=== PATIENT | male | born 1955 | race Caucasian/White ===

== ENCOUNTER 2019-02-05 14:09 | Emergency (ER) | payer MEDICAID ==
[~2019-02-05] VITALS: Ht 172.7 cm; Wt 90.0 kg
[~2019-02-05 14:09] MED LIST: OMEP40CA34 PO; SUCR1TAB30 PO
[2019-02-05] MEDS ORDERED: INSU100V3 SUBCUT (14:13)
[2019-02-05] MEDS ORDERED: MORPHINE SULFATE 4 MG/ML CPJ (NOT FOR IM USE) IV STA (14:51)
[2019-02-05] MEDS ORDERED: SODIUM CHLORIDE 0.9% 1,000 ML IV ONE ×3 (14:51→19:15)
[2019-02-05] MEDS ORDERED: ONDANSETRON HCL 4MG/2ML INJ IV STA (14:51)
[2019-02-05 16:00] LABS: CLARITY URINE CLEAR (CLEAR); COLOR URINE YELLOW (YELLOW); KETONES URINE NEGATIVE (NEGATIVE); LEUKOCYTE ESTERASE URINE NEGATIVE (NEGATIVE); NITRITE URINE NEGATIVE (NEGATIVE); OCCULT BLOOD URINE NEGATIVE (NEGATIVE); PROTEIN URINE NEGATIVE (NEGATIVE); SPECIFIC GRAVITY URINE 1.012 (1.005-1.030); UROBILINOGEN URINE 0.2 E.U./dL (0.2-1.0)
[2019-02-05 16:19] LABS: BASOPHILS % 0.4 % (0.0-2.0); EOSINOPHILS % 0.1 % (0.0-5.0); HEMATOCRIT. 32.7 % (42.0-52.0); LYMPHOCYTES % 8.4 % (20.0-50.0); MEAN CORPUSCULAR HEMOGLOBIN 26.7 pg (28.0-32.0); MEAN CORPUSCULAR VOLUME 79.4 fL (80.0-94.0); MEAN PLATELET VOLUME 8.7 fl (7.4-10.4); MONOCYTES % 9.2 % (2.0-8.0); NEUTROPHILS % 81.9 % (40.0-76.0); PLATELET 64 x1000/uL (130-400); RED BLOOD CELL COUNT 4.11 mill/uL (4.7-6.1); RED CELL DISTRIBUTION WIDTH 17.8 % (11.6-14.6)
[2019-02-05 16:25] LABS: CHLORIDE 101 mEq/L (98-107)
[2019-02-05] MEDS ORDERED: PIPERACILLIN/TAZOBACTAM 3.375GM/50ML PREMIX IV ONE (19:15)
[2019-02-05] MEDS ORDERED: PIPERACILLIN/TAZ 3.375G PREMIX 50 ML IV NR (19:25)
[2019-02-05 22:50] VITALS: BP 125/86
== END 2019-02-05 23:47 | disposition short-term general hospital (02) ==
LOC: ER 14:09 → EDBEDREQSVC 19:16 → EDBEDREQ 19:16 → ER 23:47 → CANBEDREQ 02-06 00:53
DX: R10.31 Right lower quadrant pain (principal); K40.90 Unilateral inguinal hernia, without obstruction or gangrene, not specified as recurrent; E11.9 Type 2 diabetes mellitus without complications; K74.60 Unspecified cirrhosis of liver; R76.11 Nonspecific reaction to tuberculin skin test without active tuberculosis; Z79.4 Long term (current) use of insulin; Z91.09 Other allergy status, other than to drugs and biological substances
CPT/HCPCS: 36415; 71045; 74176; 80053; 81003; 82962; 83605; 83690; 85025; 96361; 96365; 96375; 99285; J2270; J2405; J2543; J7030

== ENCOUNTER 2019-07-12 13:31 | Inpatient (IN) | payer MEDICARE, MEDICAID ==
[~2019-07-12] VITALS: Ht 167.6 cm; Wt 90.4 kg
[~2019-07-12 13:31] MED LIST changes: +INSU100V3 SUBCUT; +OMEP40CA12 PO; -OMEP40CA34 PO
[2019-07-12] MEDS ORDERED: SODIUM CHLORIDE 0.9% 1,000 ML IV ONE (14:37)
[2019-07-12] MEDS ORDERED: ONDANSETRON HCL 4MG/2ML INJ IV STA (14:37)
[2019-07-12 15:14] LABS: BASOPHILS % 0.1 % (0.0-2.0); EOSINOPHILS % 0.1 % (0.0-5.0); HEMATOCRIT. 34.9 % (42.0-52.0); HEMOGLOBIN. 11.9 g/dL (14.0-18.0); LYMPHOCYTES % 9.9 % (20.0-50.0); MEAN CORPUSCULAR HEMOGLOBIN 26.6 pg (28.0-32.0); MEAN CORPUSCULAR VOLUME 77.8 fL (80.0-94.0); MEAN PLATELET VOLUME 8.6 fl (7.4-10.4); MONOCYTES % 9.4 % (2.0-8.0); NEUTROPHILS % 80.5 % (40.0-76.0); PLATELET 67 x1000/uL (130-400); RED BLOOD CELL COUNT 4.49 mill/uL (4.7-6.1); RED CELL DISTRIBUTION WIDTH 21.1 % (11.6-14.6)
[2019-07-12 15:17] LABS: CHLORIDE 109 mEq/L (98-107)
[2019-07-12 15:19] LABS: INR 1.1; PARTIAL THROMBOPLASTIN TIME 26.8 sec (23.4-31.0); PROTHROMBIN TIME 12.1 sec (9.6-11.0)
[2019-07-12 15:24] LABS: ETHANOL BLOOD < 10 mg/dL
[2019-07-12 15:25] LABS: CREATINE KINASE 108 IU/L (39-308)
[2019-07-12 15:28] LABS: CREATINE KINASE MB FRACTION 2.1 ng/mL (0.5-3.6)
[2019-07-12 15:47] LABS: CLARITY URINE CLEAR (CLEAR); COLOR URINE DARK YELLOW (YELLOW); KETONES URINE NEGATIVE (NEGATIVE); LEUKOCYTE ESTERASE URINE NEGATIVE (NEGATIVE); NITRITE URINE NEGATIVE (NEGATIVE); OCCULT BLOOD URINE NEGATIVE (NEGATIVE); PH URINE 6.5 (4.5-8.0); PROTEIN URINE NEGATIVE (NEGATIVE); SPECIFIC GRAVITY URINE 1.018 (1.005-1.030); UROBILINOGEN URINE 0.2 E.U./dL (0.2-1.0)
[2019-07-12 16:06] LABS: *AMPHETAMINES SCREEN URINE NEGATIVE (NEGATIVE); *BARBITURATES SCREEN URINE NEGATIVE (NEGATIVE); *BENZODIAZEPINES SCREEN URINE NEGATIVE (NEGATIVE); *COCAINE SCREEN URINE NEGATIVE (NEGATIVE); METHADONE URINE SCREEN NEGATIVE (NEGATIVE)
[2019-07-12 16:07] LABS: CANNABINOID URINE SCREEN NEGATIVE (NEGATIVE); OPIATES URINE SCREEN NEGATIVE (NEGATIVE); PHENCYCLIDINE URINE SCREEN NEGATIVE (NEGATIVE)
[2019-07-12] MEDS ORDERED: NA PHOS,M-B/NA PHOS,DI-BA ENEMA 118ML PR PRN (18:15)
[2019-07-12] MEDS ORDERED: MAGNESIUM/ALUMINUM HYDROXIDE/SIMETHICONE 30ML UDC PO PRN (18:15)
[2019-07-12] MEDS ORDERED: PANTOPRAZOLE SODIUM 40 MG/VIAL IV ONE (18:15)
[2019-07-12] MEDS ORDERED: CLONIDINE 0.1MG TABLET PO PRN (18:15)
[2019-07-12] MEDS ORDERED: LORAZEPAM 0.5MG TABLET PO PRN (18:15)
[2019-07-12] MEDS ORDERED: DOCUSATE SODIUM 100MG CAPSULE PO PRN (18:15)
[2019-07-12] MEDS ORDERED: DEXTROSE 50% WATER 50ML SYRINGE IV PRN (18:15)
[2019-07-12] MEDS ORDERED: ACETAMINOPHEN 650MG/20.3ML UDC GT PRN (18:15)
[2019-07-12] MEDS ORDERED: ONDANSETRON HCL 4MG/2ML INJ IV PRN (18:15)
[2019-07-12] MEDS ORDERED: IPRATROPIUM/ALBUTEROL 0.5-3(2.5)MG/3ML NEB NEB PRN (18:15)
[2019-07-12] MEDS ORDERED: GUAIFENESIN 200MG/10ML SUGAR FREE UDC PO PRN (18:15)
[2019-07-12] MEDS ORDERED: ACETAMINOPHEN 650MG SUPP PR PRN (18:15)
[2019-07-12] MEDS ORDERED: ACETAMINOPHEN 325MG TABLET PO PRN (18:15)
[2019-07-12] MEDS ORDERED: DIPHENHYDRAMINE 50MG/ML VIAL IV PRN (18:15)
[2019-07-12] MEDS ORDERED: HYDROCODONE/ACETAMINOPHEN 5/325MG TABLET PO PRN (18:15)
[2019-07-12] MEDS ORDERED: INSULIN LISPRO 100 UNITS/ML SUBCUT SCH (18:20)
[2019-07-12 18:49] LABS: BG BASE EXCESS -0.6 mmol/L (-2.0-2.0); BG CARBOXYHEMOGLOBIN 0.1 % (0.5-1.5); BG DEOXYHEMOGLOBIN 3.5 % (0.0-5.0); BG FRACTION INSPIRED OXYGEN 21; BG HCO3 ACT 22.5 mmol/L (22.0-26.0); BG METHEMOGLOBIN 0.2 % (0.0-1.5); BG OXYGEN SATURATION 96.5 % (92.0-98.5); BG OXYHEMOGLOBIN 96.2 % (94.0-97.0); BG PCO2 31.9 mmHg (35.0-45.0); BG PH 7.466 (7.350-7.450); BG PO2 95.1 mmHg (75.0-100.0); BG SAMPLE SITE RIGHT RADIAL; BG TOTAL HEMOGLOBIN 11.6 g/dL (12.0-18.0); BG VENT MODE ROOM AIR
[2019-07-12] MEDS: SODIUM CHLORIDE 0.45% 1,000 ML IV SCH (19:02)
[2019-07-12] MEDS ORDERED: LACTULOSE 20G/30ML UDC PO SCH (22:00)
[2019-07-12 23:05] VITALS: BP 125/76
[2019-07-12] MEDS ORDERED: PANTOPRAZOLE SODIUM 40 MG/VIAL IV NR (23:20)
[2019-07-12 23:52] LABS: CREATINE KINASE 345 IU/L (39-308)
[2019-07-12 23:53] LABS: CREATINE KINASE MB FRACTION 7.8 ng/mL (0.5-3.6)
[2019-07-13] VITALS: BP 147/75
[2019-07-13] MEDS ORDERED: RIFA550T PO (03:33)
[2019-07-13] MEDS ORDERED: FOLI-43 PO (03:33)
[2019-07-13] MEDS ORDERED: SPIR50TA5 PO (03:33)
[2019-07-13] MEDS ORDERED: DIPH25TA23 PO (03:33)
[2019-07-13] MEDS ORDERED: FURO40TA5 PO (03:33)
[2019-07-13] MEDS ORDERED: VIT1TABL77 PO (03:33)
[2019-07-13] MEDS ORDERED: OMEP40CA12 PO (03:33)
[2019-07-13] MEDS ORDERED: HYDR-4001 PO (03:39)
[2019-07-13] MEDS ORDERED: INSU100I24 SQ (03:39)
[2019-07-13] MEDS ORDERED: LACT10SO30 PO (03:39)
[2019-07-13] MEDS ORDERED: VIT D PO (03:51)
[2019-07-13] MEDS ORDERED: VIT D2 PO (03:57)
[2019-07-13 04:00] VITALS: BP 144/76
[2019-07-13] MEDS: LACTULOSE 20G/30ML UDC PO SCH ×3 (06:19→20:32)
[2019-07-13] MEDS: BLOOD SUGAR DIAGNOSTIC STRIP TEST SCH ×4 (06:25→21:00)
[2019-07-13] MEDS: INSULIN LISPRO 100 UNITS/ML SUBCUT SCH ×4 (06:25→21:30)
[2019-07-13 07:56] LABS: BASOPHILS % 0.3 % (0.0-2.0); HEMATOCRIT. 29.4 % (42.0-52.0); HEMOGLOBIN. 10.1 g/dL (14.0-18.0); LYMPHOCYTES % 26.2 % (20.0-50.0); MEAN CORPUSCULAR HEMOGLOBIN 26.5 pg (28.0-32.0); MEAN CORPUSCULAR VOLUME 77.3 fL (80.0-94.0); MEAN PLATELET VOLUME 8.7 fl (7.4-10.4); MONOCYTES % 14.2 % (2.0-8.0); NEUTROPHILS % 57.3 % (40.0-76.0); PLATELET 55 x1000/uL (130-400); RED BLOOD CELL COUNT 3.81 mill/uL (4.7-6.1); RED CELL DISTRIBUTION WIDTH 20.9 % (11.6-14.6)
[2019-07-13 08:00] VITALS: BP 133/85
[2019-07-13 08:05] LABS: CHLORIDE 108 mEq/L (98-107)
[2019-07-13 08:31] LABS: LDL CHOLESTEROL 46 mg/dL (5-100)
[2019-07-13 08:32] LABS: CREATINE KINASE 455 IU/L (39-308); CREATINE KINASE MB FRACTION 9.5 ng/mL (0.5-3.6); HDL CHOLESTEROL 50 mg/dL (40-59); T4 FREE 0.88 ng/dL (0.76-1.46)
[2019-07-13 12:00] VITALS: BP 145/80
[2019-07-13] MEDS ORDERED: POTASSIUM CHLORIDE INJ 40 MEQ in DEXT 5% WATER 250 ML IV SCH (12:00)
[2019-07-13] MEDS ORDERED: PNEUMOCOCCAL 23-VAL P-SAC VAC 0.5 ML IM ONE (12:00)
[2019-07-13] MEDS ORDERED: INFLUENZA VIRUS VACCINE(AFLURIA) 0.5ML SYR IM ONE (12:00)
[2019-07-13] MEDS: SODIUM CHLORIDE 0.45% 1,000 ML IV SCH (14:36)
[2019-07-13 15:26] LABS: HEPATITIS B SURFACE ANTIGEN NEGATIVE
[2019-07-13 15:55] LABS: HEPATITIS A AB IGM NEGATIVE (NEGATIVE)
[2019-07-13 16:00] VITALS: BP 112/67
[2019-07-13] MEDS: SUCRALFATE 1G TABLET PO SCH (18:23)
[2019-07-13] MEDS: SPIRONOLACTONE 50MG TABLET PO SCH (18:23)
[2019-07-13] MEDS: RIFAXIMIN 550 MG TABLET PO SCH (18:23)
[2019-07-13 20:00] VITALS: BP 139/77
[2019-07-13] MEDS: PROPRANOLOL HCL 10MG TABLET PO SCH (20:31)
[2019-07-14] VITALS (13 sets, daily range): BP systolic 88–120; BP diastolic 47–80
[2019-07-14] MEDS: LACTULOSE 20G/30ML UDC PO SCH ×4 (02:11→21:11)
[2019-07-14 06:16] LABS: HEMATOCRIT 29.7 % (42.0-52.0); HEMOGLOBIN 10.3 g/dL (14.0-18.0); MEAN CORPUSCULAR VOLUME 77.7 fL (80.0-94.0); PLATELET 58 x1000/uL (130-400); RED BLOOD CELL COUNT 3.82 mill/uL (4.7-6.1); RED CELL DISTRIBUTION WIDTH 21.1 % (11.6-14.6)
[2019-07-14] MEDS: BLOOD SUGAR DIAGNOSTIC STRIP TEST SCH ×4 (06:21→21:09)
[2019-07-14] MEDS: PANTOPRAZOLE 40MG DR TABLET PO SCH (06:21)
[2019-07-14] MEDS: RIFAXIMIN 550 MG TABLET PO SCH ×2 (06:21→17:49)
[2019-07-14] MEDS: INSULIN LISPRO 100 UNITS/ML SUBCUT SCH ×4 (06:22→21:00)
[2019-07-14 06:48] LABS: CHLORIDE 107 mEq/L (98-107)
[2019-07-14] MEDS: FUROSEMIDE 40MG TABLET PO SCH (09:00)
[2019-07-14] MEDS: SPIRONOLACTONE 50MG TABLET PO SCH (09:00)
[2019-07-14] MEDS: PROPRANOLOL HCL 10MG TABLET PO SCH ×2 (09:00→21:00)
[2019-07-14] MEDS: SUCRALFATE 1G TABLET PO SCH (09:05)
[2019-07-14] MEDS: FOLIC ACID 1MG TABLET PO SCH (09:06)
[2019-07-15 00:24] VITALS: BP 110/61
[2019-07-15] MEDS: LACTULOSE 20G/30ML UDC PO SCH ×2 (03:00→08:37)
[2019-07-15 04:00] VITALS: BP 103/60
[2019-07-15 06:00] LABS: BASOPHILS % 0.2 % (0.0-2.0); EOSINOPHILS % 3.8 % (0.0-5.0); HEMATOCRIT. 30.7 % (42.0-52.0); HEMOGLOBIN. 10.6 g/dL (14.0-18.0); LYMPHOCYTES % 32.6 % (20.0-50.0); MEAN CORPUSCULAR HEMOGLOBIN 26.9 pg (28.0-32.0); MEAN CORPUSCULAR VOLUME 77.5 fL (80.0-94.0); MEAN PLATELET VOLUME 8.8 fl (7.4-10.4); MONOCYTES % 14.3 % (2.0-8.0); NEUTROPHILS % 49.1 % (40.0-76.0); PLATELET 69 x1000/uL (130-400); RED BLOOD CELL COUNT 3.96 mill/uL (4.7-6.1); RED CELL DISTRIBUTION WIDTH 20.5 % (11.6-14.6)
[2019-07-15] MEDS: PANTOPRAZOLE 40MG DR TABLET PO SCH (06:21)
[2019-07-15] MEDS: BLOOD SUGAR DIAGNOSTIC STRIP TEST SCH (06:21)
[2019-07-15] MEDS: RIFAXIMIN 550 MG TABLET PO SCH (06:21)
[2019-07-15 06:57] LABS: CHLORIDE 106 mEq/L (98-107)
[2019-07-15] MEDS: INSULIN LISPRO 100 UNITS/ML SUBCUT SCH (07:44)
[2019-07-15 08:02] VITALS: BP_SYST 87; BP_SYST 95; BP_DIAS 47; BP_DIAS 49
[2019-07-15] MEDS: FOLIC ACID 1MG TABLET PO SCH (08:32)
[2019-07-15] MEDS: SUCRALFATE 1G TABLET PO SCH (08:33)
[2019-07-15] MEDS: FUROSEMIDE 40MG TABLET PO SCH (08:33)
[2019-07-15] MEDS: PROPRANOLOL HCL 10MG TABLET PO SCH (08:34)
[2019-07-15] MEDS: SPIRONOLACTONE 50MG TABLET PO SCH (08:36)
== END 2019-07-15 10:00 | disposition home or self-care (01) | DRG 441 ==
LOC: ER 13:31 → 6WST 17:47 → EDBEDREQ 17:51 → ENRESERV 20:53
PROVIDERS: ADMIT Internal Medicine; ATTEND Internal Medicine
DX: K72.00 Acute and subacute hepatic failure without coma (principal); G93.41 Metabolic encephalopathy; D61.818 Other pancytopenia; E87.2 Acidosis; K76.6 Portal hypertension; M62.82 Rhabdomyolysis; E80.6 Other disorders of bilirubin metabolism; E11.65 Type 2 diabetes mellitus with hyperglycemia; E86.0 Dehydration; E87.6 Hypokalemia; K74.60 Unspecified cirrhosis of liver; K80.20 Calculus of gallbladder without cholecystitis without obstruction; Z79.4 Long term (current) use of insulin; Z79.899 Other long term (current) drug therapy
CPT/HCPCS: 36415; 36600; 71045; 76700; 80053; 80061; 80076; 80305; 80320; 81003; 82140; 82248; 82375; 82550; 82553; 82805; 82962; 83036; 83605; 83880; 84439; 84443; 84484; 85025; 85027; 86705; 86709; 86803; 87340; 90686; 90732; 93005; 93306; 93970; 96374; 97162; 99285; C9113; J1815; J3480; J7030; J7060; G0480

== ENCOUNTER 2019-07-20 19:37 | Inpatient (IN) | payer MEDICARE, MEDICAID ==
[~2019-07-20] VITALS: Ht 170.2 cm; Wt 89.4 kg
[~2019-07-20 19:37] MED LIST changes: +DIPH25TA23 PO; +FOLI-43 PO; +FURO40TA5 PO; +INSU100I24 SQ; +LACT10SO30 PO; +RIFA550T PO; +SPIR50TA5 PO; +VIT D2 PO; +VIT1TABL77 PO
[2019-07-20] MEDS ORDERED: SODIUM CHLORIDE 0.9% 1,000 ML IV ONE (20:27)
[2019-07-20 21:00] LABS: BG BASE EXCESS -2.9 mmol/L (-2.0-2.0); BG CARBOXYHEMOGLOBIN 0.1 % (0.5-1.5); BG DEOXYHEMOGLOBIN 3.3 % (0.0-5.0); BG FRACTION INSPIRED OXYGEN 21; BG HCO3 ACT 20.2 mmol/L (22.0-26.0); BG METHEMOGLOBIN 0.2 % (0.0-1.5); BG OXYGEN SATURATION 96.7 % (92.0-98.5); BG OXYHEMOGLOBIN 96.4 % (94.0-97.0); BG PCO2 29.9 mmHg (35.0-45.0); BG PH 7.448 (7.350-7.450); BG PO2 93.6 mmHg (75.0-100.0); BG SAMPLE SITE RIGHT BRACHIAL; BG TOTAL HEMOGLOBIN 11.6 g/dL (12.0-18.0); BG VENT MODE ROOM AIR
[2019-07-20 21:02] LABS: BASOPHILS % 0.3 % (0.0-2.0); EOSINOPHILS % 1.4 % (0.0-5.0); HEMATOCRIT. 33.7 % (42.0-52.0); HEMOGLOBIN. 11.6 g/dL (14.0-18.0); LYMPHOCYTES % 18.5 % (20.0-50.0); MEAN CORPUSCULAR HEMOGLOBIN 27.1 pg (28.0-32.0); MEAN CORPUSCULAR VOLUME 78.6 fL (80.0-94.0); MEAN PLATELET VOLUME 9.3 fl (7.4-10.4); MONOCYTES % 13.9 % (2.0-8.0); NEUTROPHILS % 65.9 % (40.0-76.0); PLATELET 63 x1000/uL (130-400); RED BLOOD CELL COUNT 4.28 mill/uL (4.7-6.1); RED CELL DISTRIBUTION WIDTH 21.6 % (11.6-14.6)
[2019-07-20 21:04] LABS: CHLORIDE 109 mEq/L (98-107)
[2019-07-20 21:08] LABS: ETHANOL BLOOD < 10 mg/dL
[2019-07-20] MEDS ORDERED: LACTULOSE 20G/30ML UDC PO ONE (21:15)
[2019-07-20] MEDS ORDERED: LORAZEPAM 2MG/ML CPJ IV PRN (22:15)
[2019-07-20] MEDS ORDERED: HYDRALAZINE 20MG/ML VIAL IV PRN (22:15)
[2019-07-20] MEDS ORDERED: ONDANSETRON HCL 4MG/2ML INJ IV PRN (22:15)
[2019-07-21 03:28] VITALS: BP 149/83
[2019-07-21] MEDS ORDERED: DEXTROSE 50% WATER 50ML SYRINGE IV PRN (04:00)
[2019-07-21] MEDS: LACTULOSE 20G/30ML UDC PO SCH ×3 (05:47→21:51)
[2019-07-21] MEDS: INSULIN LISPRO 100 UNITS/ML SUBCUT SCH ×4 (06:37→21:50)
[2019-07-21] MEDS: BLOOD SUGAR DIAGNOSTIC STRIP TEST SCH ×4 (06:37→21:00)
[2019-07-21] MEDS ORDERED: BLOOD SUGAR DIAGNOSTIC STRIP TEST SCH ×4 (07:00→22:00)
[2019-07-21 08:00] VITALS: BP 160/94
[2019-07-21 09:16] LABS: BASOPHILS % 0.2 % (0.0-2.0); EOSINOPHILS % 1.2 % (0.0-5.0); HEMATOCRIT. 33.3 % (42.0-52.0); HEMOGLOBIN. 11.5 g/dL (14.0-18.0); LYMPHOCYTES % 18.6 % (20.0-50.0); MEAN CORPUSCULAR VOLUME 78.5 fL (80.0-94.0); MEAN PLATELET VOLUME 8.5 fl (7.4-10.4); MONOCYTES % 11.5 % (2.0-8.0); NEUTROPHILS % 68.5 % (40.0-76.0); PLATELET 63 x1000/uL (130-400); RED BLOOD CELL COUNT 4.24 mill/uL (4.7-6.1); RED CELL DISTRIBUTION WIDTH 21.8 % (11.6-14.6)
[2019-07-21 09:22] LABS: CHLORIDE 112 mEq/L (98-107)
[2019-07-21] MEDS: RIFAXIMIN 550 MG TABLET PO SCH ×2 (09:32→21:50)
[2019-07-21] MEDS: PANTOPRAZOLE SODIUM 40 MG/VIAL IV SCH (09:32)
[2019-07-21 12:00] VITALS: BP 145/79
[2019-07-21 16:00] VITALS: BP 155/89
[2019-07-21 20:00] VITALS: BP 146/82
[2019-07-21] MEDS: PROPRANOLOL HCL 10MG TABLET PO SCH (21:50)
[2019-07-22] VITALS: BP 135/80
[2019-07-22 04:00] VITALS: BP 130/72
[2019-07-22] MEDS: LACTULOSE 20G/30ML UDC PO SCH ×3 (06:00→21:19)
[2019-07-22 06:40] LABS: CHLORIDE 111 mEq/L (98-107)
[2019-07-22 06:55] LABS: BASOPHILS % 0.2 % (0.0-2.0); EOSINOPHILS % 3.1 % (0.0-5.0); HEMATOCRIT. 28.9 % (42.0-52.0); HEMOGLOBIN. 10.1 g/dL (14.0-18.0); MEAN CORPUSCULAR HEMOGLOBIN 27.5 pg (28.0-32.0); MEAN CORPUSCULAR VOLUME 78.3 fL (80.0-94.0); MEAN PLATELET VOLUME 8.8 fl (7.4-10.4); MONOCYTES % 12.3 % (2.0-8.0); NEUTROPHILS % 57.4 % (40.0-76.0); PLATELET 60 x1000/uL (130-400); RED CELL DISTRIBUTION WIDTH 21.4 % (11.6-14.6)
[2019-07-22] MEDS: BLOOD SUGAR DIAGNOSTIC STRIP TEST SCH ×4 (07:41→21:00)
[2019-07-22] MEDS: INSULIN LISPRO 100 UNITS/ML SUBCUT SCH ×4 (07:42→21:00)
[2019-07-22 08:00] VITALS: BP 125/63
[2019-07-22] MEDS: RIFAXIMIN 550 MG TABLET PO SCH ×2 (09:14→21:19)
[2019-07-22] MEDS: PROPRANOLOL HCL 10MG TABLET PO SCH ×2 (09:16→21:19)
[2019-07-22] MEDS: PANTOPRAZOLE SODIUM 40 MG/VIAL IV SCH (09:16)
[2019-07-22 12:00] VITALS: BP 133/69
[2019-07-22 16:00] VITALS: BP 130/55
[2019-07-22] MEDS ORDERED: POTASSIUM CHLORIDE 20MEQ TABLET SR PO NR (17:00)
[2019-07-22] MEDS: LACTULOSE 300 ML in WATER FOR IRRIGATION,STERILE 700 ML IR SCH ×2 (17:00→17:44)
[2019-07-22 19:54] VITALS: BP 121/62
[2019-07-23] VITALS: BP 103/56
[2019-07-23 03:41] VITALS: BP 107/57
[2019-07-23] MEDS: LACTULOSE 20G/30ML UDC PO SCH ×3 (05:10→22:00)
[2019-07-23] MEDS: INSULIN LISPRO 100 UNITS/ML SUBCUT SCH ×4 (06:24→21:59)
[2019-07-23] MEDS: BLOOD SUGAR DIAGNOSTIC STRIP TEST SCH ×4 (06:24→21:00)
[2019-07-23 07:39] LABS: BASOPHILS % 0.5 % (0.0-2.0); HEMATOCRIT. 34.1 % (42.0-52.0); HEMOGLOBIN. 11.6 g/dL (14.0-18.0); LYMPHOCYTES % 26.7 % (20.0-50.0); MEAN CORPUSCULAR HEMOGLOBIN 27.2 pg (28.0-32.0); MEAN CORPUSCULAR VOLUME 80.3 fL (80.0-94.0); MEAN PLATELET VOLUME 8.8 fl (7.4-10.4); NEUTROPHILS % 57.8 % (40.0-76.0); PLATELET 80 x1000/uL (130-400); RED BLOOD CELL COUNT 4.25 mill/uL (4.7-6.1); RED CELL DISTRIBUTION WIDTH 21.7 % (11.6-14.6)
[2019-07-23 07:55] LABS: CHLORIDE 111 mEq/L (98-107)
[2019-07-23 08:00] VITALS: BP 112/58
[2019-07-23] MEDS: RIFAXIMIN 550 MG TABLET PO SCH ×2 (09:16→21:44)
[2019-07-23] MEDS: PROPRANOLOL HCL 10MG TABLET PO SCH ×2 (09:16→21:00)
[2019-07-23] MEDS: PANTOPRAZOLE SODIUM 40 MG/VIAL IV SCH (09:16)
[2019-07-23 12:00] VITALS: BP 113/58
[2019-07-23 16:00] VITALS: BP 117/73
[2019-07-23 20:00] VITALS: BP 104/51
[2019-07-24] VITALS: BP 96/49
[2019-07-24 04:00] VITALS: BP 104/51
[2019-07-24] MEDS: LACTULOSE 20G/30ML UDC PO SCH ×3 (06:50→21:20)
[2019-07-24] MEDS: BLOOD SUGAR DIAGNOSTIC STRIP TEST SCH ×4 (06:50→21:20)
[2019-07-24 08:00] VITALS: BP 127/79
[2019-07-24] MEDS: INSULIN LISPRO 100 UNITS/ML SUBCUT SCH ×4 (08:10→21:00)
[2019-07-24] MEDS: PROPRANOLOL HCL 10MG TABLET PO SCH ×2 (09:14→21:21)
[2019-07-24] MEDS: RIFAXIMIN 550 MG TABLET PO SCH ×2 (09:14→21:21)
[2019-07-24] MEDS: PANTOPRAZOLE SODIUM 40 MG/VIAL IV SCH (09:39)
[2019-07-24 12:00] VITALS: BP 116/63
[2019-07-24 13:53] LABS: BASOPHILS % 0.3 % (0.0-2.0); CHLORIDE 110 mEq/L (98-107); EOSINOPHILS % 3.4 % (0.0-5.0); HEMATOCRIT. 30.4 % (42.0-52.0); HEMOGLOBIN. 10.6 g/dL (14.0-18.0); LYMPHOCYTES % 29.1 % (20.0-50.0); MEAN CORPUSCULAR HEMOGLOBIN 27.3 pg (28.0-32.0); MEAN CORPUSCULAR VOLUME 78.3 fL (80.0-94.0); MEAN PLATELET VOLUME 8.7 fl (7.4-10.4); NEUTROPHILS % 53.2 % (40.0-76.0); PLATELET 66 x1000/uL (130-400); RED BLOOD CELL COUNT 3.88 mill/uL (4.7-6.1); RED CELL DISTRIBUTION WIDTH 20.7 % (11.6-14.6)
[2019-07-24 16:00] VITALS: BP 116/65
[2019-07-24] MEDS ORDERED: HYDROCODONE/ACETAMINOPHEN 5/325MG TABLET PO PRN (17:15)
[2019-07-24 20:00] VITALS: BP_SYST 117; BP_SYST 133; BP_DIAS 64; BP_DIAS 66
[2019-07-24] MEDS ORDERED: LACTULOSE 300 ML in WATER FOR IRRIGATION,STERILE 700 ML IR SCH (20:00)
[2019-07-25] VITALS: BP 115/64
[2019-07-25 04:00] VITALS: BP 101/54
[2019-07-25 05:10] LABS: BASOPHILS % 0.3 % (0.0-2.0); EOSINOPHILS % 3.4 % (0.0-5.0); HEMOGLOBIN. 10.3 g/dL (14.0-18.0); LYMPHOCYTES % 31.3 % (20.0-50.0); MEAN CORPUSCULAR HEMOGLOBIN 27.1 pg (28.0-32.0); MEAN CORPUSCULAR VOLUME 78.5 fL (80.0-94.0); MEAN PLATELET VOLUME 8.5 fl (7.4-10.4); MONOCYTES % 12.9 % (2.0-8.0); NEUTROPHILS % 52.1 % (40.0-76.0); PLATELET 59 x1000/uL (130-400); RED BLOOD CELL COUNT 3.82 mill/uL (4.7-6.1); RED CELL DISTRIBUTION WIDTH 20.9 % (11.6-14.6)
[2019-07-25 05:18] LABS: CHLORIDE 110 mEq/L (98-107)
[2019-07-25] MEDS: INSULIN LISPRO 100 UNITS/ML SUBCUT SCH ×4 (06:25→21:00)
[2019-07-25] MEDS: LACTULOSE 20G/30ML UDC PO SCH ×3 (06:25→23:07)
[2019-07-25] MEDS: BLOOD SUGAR DIAGNOSTIC STRIP TEST SCH ×4 (06:25→21:00)
[2019-07-25 08:00] VITALS: BP 111/54
[2019-07-25] MEDS: RIFAXIMIN 550 MG TABLET PO SCH ×2 (09:02→23:07)
[2019-07-25] MEDS: PROPRANOLOL HCL 10MG TABLET PO SCH ×2 (09:03→23:07)
[2019-07-25] MEDS: PANTOPRAZOLE SODIUM 40 MG/VIAL IV SCH (09:48)
[2019-07-25 12:00] VITALS: BP 113/58
[2019-07-25] MEDS ORDERED: MORPHINE SULFATE 2 MG/ML CPJ (NOT FOR IM USE) IV PRN (14:30)
[2019-07-25] MEDS ORDERED: ONDANSETRON HCL 4MG/2ML INJ IV PRN (14:30)
[2019-07-25 16:00] VITALS: BP 85/40
[2019-07-25 20:00] VITALS: BP 112/56
[2019-07-26] VITALS: BP 119/59
[2019-07-26 04:00] VITALS: BP 110/56
[2019-07-26 06:48] LABS: BASOPHILS % 0.5 % (0.0-2.0); EOSINOPHILS % 3.4 % (0.0-5.0); HEMATOCRIT. 29.5 % (42.0-52.0); HEMOGLOBIN. 10.4 g/dL (14.0-18.0); INR 1.2; MEAN CORPUSCULAR HEMOGLOBIN 27.4 pg (28.0-32.0); MEAN CORPUSCULAR VOLUME 78.1 fL (80.0-94.0); MEAN PLATELET VOLUME 8.7 fl (7.4-10.4); MONOCYTES % 11.9 % (2.0-8.0); NEUTROPHILS % 54.2 % (40.0-76.0); PLATELET 70 x1000/uL (130-400); PROTHROMBIN TIME 13.2 sec (9.6-11.0); RED BLOOD CELL COUNT 3.78 mill/uL (4.7-6.1); RED CELL DISTRIBUTION WIDTH 20.8 % (11.6-14.6)
[2019-07-26] MEDS: LACTULOSE 20G/30ML UDC PO SCH ×3 (06:58→21:48)
[2019-07-26 07:24] LABS: CHLORIDE 108 mEq/L (98-107)
[2019-07-26 07:34] LABS: FERRITIN 21 ng/mL (22-322)
[2019-07-26 07:43] LABS: FOLIC ACID (FOLATE) SERUM >20 ng/mL ng/mL (>5.38)
[2019-07-26 07:49] LABS: TOTAL IRON BINDING CAPACITY 301 ug/dL (250-450)
[2019-07-26 07:55] LABS: VITAMIN B12 SERUM 1733 pg/mL (211-911)
[2019-07-26 08:00] VITALS: BP 128/68
[2019-07-26] MEDS: INSULIN LISPRO 100 UNITS/ML SUBCUT SCH ×4 (08:10→21:00)
[2019-07-26] MEDS: BLOOD SUGAR DIAGNOSTIC STRIP TEST SCH ×4 (08:12→21:49)
[2019-07-26] MEDS: PROPRANOLOL HCL 10MG TABLET PO SCH ×2 (09:50→21:48)
[2019-07-26] MEDS: RIFAXIMIN 550 MG TABLET PO SCH ×2 (09:50→21:48)
[2019-07-26] MEDS: PANTOPRAZOLE SODIUM 40 MG/VIAL IV SCH (09:50)
[2019-07-26] MEDS ORDERED: PROPRANOLOL HCL 10MG TABLET PO NR (10:45)
[2019-07-26 12:00] VITALS: BP 98/56
[2019-07-26 16:00] VITALS: BP 111/58
[2019-07-26 20:00] VITALS: BP 112/43
[2019-07-27] VITALS: BP 118/62
[2019-07-27 04:00] VITALS: BP 116/61
[2019-07-27] MEDS: INSULIN LISPRO 100 UNITS/ML SUBCUT SCH ×4 (05:54→22:32)
[2019-07-27] MEDS: BLOOD SUGAR DIAGNOSTIC STRIP TEST SCH ×4 (05:54→22:03)
[2019-07-27] MEDS: LACTULOSE 20G/30ML UDC PO SCH ×3 (05:55→22:03)
[2019-07-27 06:11] LABS: CHLORIDE 109 mEq/L (98-107)
[2019-07-27 06:25] LABS: BASOPHILS % 0.5 % (0.0-2.0); EOSINOPHILS % 2.7 % (0.0-5.0); HEMATOCRIT. 29.4 % (42.0-52.0); HEMOGLOBIN. 10.3 g/dL (14.0-18.0); LYMPHOCYTES % 29.9 % (20.0-50.0); MEAN CORPUSCULAR HEMOGLOBIN 27.7 pg (28.0-32.0); MEAN CORPUSCULAR VOLUME 78.8 fL (80.0-94.0); MEAN PLATELET VOLUME 9.3 fl (7.4-10.4); MONOCYTES % 12.9 % (2.0-8.0); PLATELET 70 x1000/uL (130-400); RED BLOOD CELL COUNT 3.74 mill/uL (4.7-6.1); RED CELL DISTRIBUTION WIDTH 21.1 % (11.6-14.6)
[2019-07-27 08:00] VITALS: BP 118/57
[2019-07-27] MEDS: PANTOPRAZOLE SODIUM 40 MG/VIAL IV SCH (08:34)
[2019-07-27] MEDS: RIFAXIMIN 550 MG TABLET PO SCH ×2 (08:35→22:02)
[2019-07-27] MEDS: PROPRANOLOL HCL 10MG TABLET PO SCH ×2 (08:35→22:21)
[2019-07-27 12:00] VITALS: BP 120/61
[2019-07-27 16:00] VITALS: BP 106/56
[2019-07-27] MEDS: NEOMYCIN 500MG TABLET PO SCH (22:20)
[2019-07-28] VITALS: BP 117/62
[2019-07-28 04:00] VITALS: BP 124/63
[2019-07-28] MEDS: INSULIN LISPRO 100 UNITS/ML SUBCUT SCH ×2 (05:44→13:10)
[2019-07-28] MEDS: BLOOD SUGAR DIAGNOSTIC STRIP TEST SCH ×2 (05:44→12:40)
[2019-07-28] MEDS: LACTULOSE 20G/30ML UDC PO SCH ×2 (05:50→15:59)
[2019-07-28] MEDS: NEOMYCIN 500MG TABLET PO SCH (05:50)
[2019-07-28 07:06] LABS: HEMATOCRIT 32.2 % (42.0-52.0); HEMOGLOBIN 11.2 g/dL (14.0-18.0); MEAN CORPUSCULAR HEMOGLOBIN 27.8 pg (28.0-32.0); MEAN CORPUSCULAR VOLUME 80.2 fL (80.0-94.0); PLATELET 67 x1000/uL (130-400); RED BLOOD CELL COUNT 4.02 mill/uL (4.7-6.1); RED CELL DISTRIBUTION WIDTH 21.2 % (11.6-14.6)
[2019-07-28 08:00] VITALS: BP 146/53
[2019-07-28] MEDS: RIFAXIMIN 550 MG TABLET PO SCH (08:35)
[2019-07-28] MEDS: PROPRANOLOL HCL 10MG TABLET PO SCH (08:35)
[2019-07-28 09:29] LABS: CHLORIDE 110 mEq/L (98-107)
[2019-07-28] MEDS: PANTOPRAZOLE SODIUM 40 MG/VIAL IV SCH (09:30)
[2019-07-28 12:00] VITALS: BP 110/63
[2019-07-28] MEDS ORDERED: RIFA550T MT (12:38)
[2019-07-28] MEDS ORDERED: LACT10SO MT (12:38)
[2019-07-28] MEDS ORDERED: PROP10TA10 MT (12:38)
[2019-07-28 16:00] VITALS: BP 103/57
== END 2019-07-28 17:15 | disposition home or self-care (01) | DRG 432 ==
LOC: ER 19:37 → 7WST 21:27 → ENRESERV 07-21 02:25 → 7WST 07-21 04:03
PROVIDERS: ADMIT Internal Medicine; ATTEND Internal Medicine
DX: K74.60 Unspecified cirrhosis of liver (principal); G93.41 Metabolic encephalopathy; E44.1 Mild protein-calorie malnutrition; D61.818 Other pancytopenia; K76.6 Portal hypertension; E87.2 Acidosis; I10 Essential (primary) hypertension; E66.9 Obesity, unspecified; E11.9 Type 2 diabetes mellitus without complications; E87.8 Other disorders of electrolyte and fluid balance, not elsewhere classified; R16.1 Splenomegaly, not elsewhere classified; E86.0 Dehydration; Z79.4 Long term (current) use of insulin; Z79.899 Other long term (current) drug therapy; Z68.31 Body mass index [BMI] 31.0-31.9, adult; Z91.09 Other allergy status, other than to drugs and biological substances; Z68.30 Body mass index [BMI] 30.0-30.9, adult
CPT/HCPCS: 36415; 36600; 71045; 76700; 80048; 80053; 80076; 80307; 80320; 80329; 82140; 82248; 82375; 82607; 82728; 82746; 82805; 82962; 83036; 83540; 83550; 83605; 83735; 84443; 85025; 85027; 85044; 92610; 93005; 99285; C9113; J1815; J7030; G0480

== ENCOUNTER 2019-10-19 11:24 | Inpatient (IN) | payer MEDICARE, OTHER ==
[~2019-10-19] VITALS: Ht 170.2 cm; Wt 94.3 kg
[~2019-10-19 11:24] MED LIST changes: -INSU100I24 SQ; -INSU100V3 SUBCUT; +LACT10SO MT; -LACT10SO30 PO; +PROP10TA10 MT; +RIFA550T MT
[2019-10-19 12:50] LABS: BASOPHILS % 0.2 % (0.0-2.0); EOSINOPHILS % 1.2 % (0.0-5.0); HEMATOCRIT. 33.4 % (42.0-52.0); HEMOGLOBIN. 11.4 g/dL (14.0-18.0); LYMPHOCYTES % 12.9 % (20.0-50.0); MEAN CORPUSCULAR VOLUME 76.4 fL (80.0-94.0); MEAN PLATELET VOLUME 8.7 fl (7.4-10.4); MONOCYTES % 11.8 % (2.0-8.0); NEUTROPHILS % 73.9 % (40.0-76.0); PLATELET 92 x1000/uL (130-400); RED BLOOD CELL COUNT 4.37 mill/uL (4.7-6.1); RED CELL DISTRIBUTION WIDTH 19.3 % (11.6-14.6)
[2019-10-19 12:52] LABS: CLARITY URINE CLEAR (CLEAR); COLOR URINE YELLOW (YELLOW); KETONES URINE NEGATIVE (NEGATIVE); LEUKOCYTE ESTERASE URINE NEGATIVE (NEGATIVE); NITRITE URINE NEGATIVE (NEGATIVE); OCCULT BLOOD URINE NEGATIVE (NEGATIVE); PH URINE 7.5 (4.5-8.0); PROTEIN URINE NEGATIVE (NEGATIVE); SPECIFIC GRAVITY URINE 1.018 (1.005-1.030); UROBILINOGEN URINE 0.2 E.U./dL (0.2-1.0)
[2019-10-19 13:08] LABS: *AMPHETAMINES SCREEN URINE NEGATIVE (NEGATIVE); *BARBITURATES SCREEN URINE NEGATIVE (NEGATIVE); *BENZODIAZEPINES SCREEN URINE NEGATIVE (NEGATIVE); *COCAINE SCREEN URINE NEGATIVE (NEGATIVE); METHADONE URINE SCREEN NEGATIVE (NEGATIVE)
[2019-10-19 13:09] LABS: CANNABINOID URINE SCREEN NEGATIVE (NEGATIVE); OPIATES URINE SCREEN NEGATIVE (NEGATIVE); PHENCYCLIDINE URINE SCREEN NEGATIVE (NEGATIVE)
[2019-10-19 13:16] LABS: CHLORIDE 106 mEq/L (98-107)
[2019-10-19 13:23] LABS: ETHANOL BLOOD < 10 mg/dL
[2019-10-19] MEDS ORDERED: LACTULOSE 20G/30ML UDC PO ONE (15:30)
[2019-10-19 20:40] LABS: HEPATITIS B SURFACE ANTIGEN NEGATIVE
[2019-10-19 21:10] LABS: HEPATITIS A AB IGM NEGATIVE (NEGATIVE)
[2019-10-19 22:00] VITALS: BP 141/78
[2019-10-19] MEDS ORDERED: ONDANSETRON HCL 4MG/2ML INJ IV PRN (22:00)
[2019-10-19] MEDS ORDERED: ACETAMINOPHEN 325MG TABLET PO PRN ×2 (22:00)
[2019-10-19] MEDS ORDERED: DEXTROSE 50% WATER 50ML SYRINGE IV PRN (22:00)
[2019-10-19] MEDS ORDERED: CLONIDINE 0.1MG TABLET PO PRN (22:00)
[2019-10-19] MEDS ORDERED: LACTULOSE 20G/30ML UDC PO SCH (22:00)
[2019-10-19] MEDS ORDERED: HYDRALAZINE 20MG/ML VIAL IV PRN (22:15)
[2019-10-19] MEDS: RIFAXIMIN 550 MG TABLET PO SCH (22:41)
[2019-10-19] MEDS: PROPRANOLOL HCL 10MG TABLET PO SCH (22:42)
[2019-10-19] MEDS: SODIUM CHLORIDE 0.9% INJ 3ML FLUSH IVF SCH (22:42)
[2019-10-20] MEDS: SODIUM CHLORIDE 0.9% INJ 3ML FLUSH IVF SCH ×3 (06:58→21:14)
[2019-10-20] MEDS: PANTOPRAZOLE 40MG DR TABLET PO SCH (06:58)
[2019-10-20] MEDS: LACTULOSE 20G/30ML UDC PO SCH ×4 (06:58→17:16)
[2019-10-20] MEDS: BLOOD SUGAR DIAGNOSTIC STRIP TEST SCH ×4 (06:58→20:48)
[2019-10-20] MEDS: INSULIN LISPRO 100 UNITS/ML SUBCUT SCH ×4 (06:59→20:53)
[2019-10-20 07:00] LABS: BASOPHILS % 0.4 % (0.0-2.0); EOSINOPHILS % 3.2 % (0.0-5.0); HEMATOCRIT. 29.8 % (42.0-52.0); HEMOGLOBIN. 10.1 g/dL (14.0-18.0); LYMPHOCYTES % 22.7 % (20.0-50.0); MEAN CORPUSCULAR HEMOGLOBIN 26.4 pg (28.0-32.0); MEAN CORPUSCULAR VOLUME 77.6 fL (80.0-94.0); MEAN PLATELET VOLUME 8.8 fl (7.4-10.4); MONOCYTES % 14.7 % (2.0-8.0); PLATELET 84 x1000/uL (130-400); RED BLOOD CELL COUNT 3.84 mill/uL (4.7-6.1); RED CELL DISTRIBUTION WIDTH 20.1 % (11.6-14.6)
[2019-10-20 07:51] LABS: CHLORIDE 108 mEq/L (98-107)
[2019-10-20 08:00] VITALS: BP 124/64
[2019-10-20 08:05] LABS: PHOSPHORUS 3.6 mg/dL (2.5-4.9)
[2019-10-20] MEDS: RIFAXIMIN 550 MG TABLET PO SCH ×2 (08:33→20:53)
[2019-10-20] MEDS: PROPRANOLOL HCL 10MG TABLET PO SCH ×2 (08:35→20:54)
[2019-10-20] MEDS ORDERED: POTASSIUM CHLORIDE 20MEQ TABLET SR PO SCH (10:15)
[2019-10-20 12:00] VITALS: BP 130/62
[2019-10-20] MEDS ORDERED: LACTULOSE 20G/30ML UDC PO SCH (12:30)
[2019-10-20 16:00] VITALS: BP 109/54
[2019-10-20 20:00] VITALS: BP 122/63
[2019-10-21] VITALS: BP 139/73
[2019-10-21] MEDS: LACTULOSE 20G/30ML UDC PO SCH ×4 (00:50→17:53)
[2019-10-21 04:00] VITALS: BP 118/64
[2019-10-21] MEDS: SODIUM CHLORIDE 0.9% INJ 3ML FLUSH IVF SCH ×3 (05:01→21:06)
[2019-10-21] MEDS: BLOOD SUGAR DIAGNOSTIC STRIP TEST SCH ×4 (05:47→21:01)
[2019-10-21] MEDS: PANTOPRAZOLE 40MG DR TABLET PO SCH (06:13)
[2019-10-21] MEDS: INSULIN LISPRO 100 UNITS/ML SUBCUT SCH ×4 (06:15→21:07)
[2019-10-21 08:00] VITALS: BP 158/73
[2019-10-21] MEDS: PROPRANOLOL HCL 10MG TABLET PO SCH ×2 (09:53→20:56)
[2019-10-21] MEDS: RIFAXIMIN 550 MG TABLET PO SCH ×2 (09:54→21:06)
[2019-10-21 12:00] VITALS: BP 130/79
[2019-10-21] MEDS ORDERED: LACTULOSE 20G/30ML UDC PO NR (12:00)
[2019-10-21 16:00] VITALS: BP 109/52
[2019-10-21 20:00] VITALS: BP 109/63
[2019-10-21] MEDS: INSULIN GLARGINE UD 100 UNITS/ML SYR SUBCUT SCH (22:16)
[2019-10-22] VITALS: BP 115/66
[2019-10-22] MEDS: LACTULOSE 20G/30ML UDC PO SCH ×5 (01:05→23:20)
[2019-10-22 04:00] VITALS: BP 118/60
[2019-10-22] MEDS: SODIUM CHLORIDE 0.9% INJ 3ML FLUSH IVF SCH ×3 (05:37→22:14)
[2019-10-22] MEDS: PANTOPRAZOLE 40MG DR TABLET PO SCH (05:45)
[2019-10-22] MEDS: BLOOD SUGAR DIAGNOSTIC STRIP TEST SCH ×4 (05:45→21:59)
[2019-10-22] MEDS: INSULIN LISPRO 100 UNITS/ML SUBCUT SCH ×4 (06:04→22:15)
[2019-10-22 07:21] LABS: CHLORIDE 107 mEq/L (98-107)
[2019-10-22 08:00] VITALS: BP 110/65
[2019-10-22] MEDS: RIFAXIMIN 550 MG TABLET PO SCH ×2 (08:36→22:03)
[2019-10-22] MEDS: PROPRANOLOL HCL 10MG TABLET PO SCH ×2 (08:37→22:06)
[2019-10-22 12:00] VITALS: BP 127/61
[2019-10-22 16:00] VITALS: BP 116/60
[2019-10-22 20:00] VITALS: BP 96/35
[2019-10-22] MEDS: INSULIN GLARGINE UD 100 UNITS/ML SYR SUBCUT SCH (22:15)
[2019-10-23] VITALS: BP 120/65
[2019-10-23 04:00] VITALS: BP 129/68
[2019-10-23] MEDS: PANTOPRAZOLE 40MG DR TABLET PO SCH (06:07)
[2019-10-23] MEDS: SODIUM CHLORIDE 0.9% INJ 3ML FLUSH IVF SCH ×3 (06:07→22:57)
[2019-10-23] MEDS: LACTULOSE 20G/30ML UDC PO SCH ×4 (06:07→23:07)
[2019-10-23] MEDS: BLOOD SUGAR DIAGNOSTIC STRIP TEST SCH ×4 (06:07→21:50)
[2019-10-23] MEDS: INSULIN LISPRO 100 UNITS/ML SUBCUT SCH ×4 (06:16→21:00)
[2019-10-23 08:00] VITALS: BP 108/62
[2019-10-23] MEDS: PROPRANOLOL HCL 10MG TABLET PO SCH ×2 (09:00→23:06)
[2019-10-23] MEDS: RIFAXIMIN 550 MG TABLET PO SCH ×2 (09:32→23:05)
[2019-10-23 12:00] VITALS: BP 129/70
[2019-10-23 16:00] VITALS: BP 129/64
[2019-10-23 20:00] VITALS: BP 111/54
[2019-10-23] MEDS: INSULIN GLARGINE UD 100 UNITS/ML SYR SUBCUT SCH (22:59)
[2019-10-24] VITALS: BP 109/50
[2019-10-24 04:00] VITALS: BP 108/76
[2019-10-24] MEDS: SODIUM CHLORIDE 0.9% INJ 3ML FLUSH IVF SCH ×3 (06:18→21:19)
[2019-10-24] MEDS: LACTULOSE 20G/30ML UDC PO SCH ×3 (06:18→17:43)
[2019-10-24] MEDS: BLOOD SUGAR DIAGNOSTIC STRIP TEST SCH ×4 (06:18→20:36)
[2019-10-24] MEDS: PANTOPRAZOLE 40MG DR TABLET PO SCH (06:18)
[2019-10-24] MEDS: INSULIN LISPRO 100 UNITS/ML SUBCUT SCH ×4 (06:25→21:21)
[2019-10-24 08:00] VITALS: BP 108/54
[2019-10-24] MEDS: RIFAXIMIN 550 MG TABLET PO SCH ×2 (09:34→21:19)
[2019-10-24] MEDS: PROPRANOLOL HCL 10MG TABLET PO SCH ×2 (09:36→21:19)
[2019-10-24 12:00] VITALS: BP 116/56
[2019-10-24 16:00] VITALS: BP 138/53
[2019-10-24 16:04] LABS: CHLORIDE 107 mEq/L (98-107); HEMATOCRIT. 30.7 % (42.0-52.0); HEMOGLOBIN. 10.4 g/dL (14.0-18.0); MEAN CORPUSCULAR HEMOGLOBIN 26.3 pg (28.0-32.0); MEAN PLATELET VOLUME 8.8 fl (7.4-10.4); PLATELET 77 x1000/uL (130-400); RED BLOOD CELL COUNT 3.94 mill/uL (4.7-6.1); RED CELL DISTRIBUTION WIDTH 20.1 % (11.6-14.6)
[2019-10-24 16:51] LABS: PLATELET ESTIMATE DECREASED
[2019-10-24 20:00] VITALS: BP 128/69
[2019-10-24] MEDS: INSULIN GLARGINE UD 100 UNITS/ML SYR SUBCUT SCH (21:21)
[2019-10-25] VITALS: BP 129/58
[2019-10-25 04:00] VITALS: BP 114/57
[2019-10-25] MEDS: LACTULOSE 20G/30ML UDC PO SCH ×3 (06:23→18:00)
[2019-10-25] MEDS: SODIUM CHLORIDE 0.9% INJ 3ML FLUSH IVF SCH ×2 (06:23→14:00)
[2019-10-25 06:27] LABS: BASOPHILS % 0.5 % (0.0-2.0); EOSINOPHILS % 3.2 % (0.0-5.0); HEMATOCRIT. 31.2 % (42.0-52.0); HEMOGLOBIN. 10.7 g/dL (14.0-18.0); LYMPHOCYTES % 31.1 % (20.0-50.0); MEAN CORPUSCULAR HEMOGLOBIN 26.7 pg (28.0-32.0); MEAN CORPUSCULAR VOLUME 77.8 fL (80.0-94.0); MEAN PLATELET VOLUME 8.8 fl (7.4-10.4); MONOCYTES % 14.2 % (2.0-8.0); PLATELET 83 x1000/uL (130-400); RED BLOOD CELL COUNT 4.01 mill/uL (4.7-6.1); RED CELL DISTRIBUTION WIDTH 20.7 % (11.6-14.6)
[2019-10-25] MEDS: BLOOD SUGAR DIAGNOSTIC STRIP TEST SCH ×3 (07:40→17:40)
[2019-10-25 08:00] VITALS: BP 137/74
[2019-10-25] MEDS: INSULIN LISPRO 100 UNITS/ML SUBCUT SCH ×3 (08:10→18:10)
[2019-10-25] MEDS: RIFAXIMIN 550 MG TABLET PO SCH (09:34)
[2019-10-25] MEDS: PROPRANOLOL HCL 10MG TABLET PO SCH (09:34)
[2019-10-25] MEDS: PANTOPRAZOLE 40MG DR TABLET PO SCH (09:34)
[2019-10-25 12:00] VITALS: BP 136/73
[2019-10-25] MEDS ORDERED: HYDRALAZINE 20MG/ML VIAL IV PRN (15:00)
[2019-10-25] MEDS ORDERED: PIPERACILLIN/TAZOBACTAM 3.375 G in DEXT 5% WATER 100 ML IV SCH ×2 (15:00→18:00)
[2019-10-25] MEDS ORDERED: HYDROCODONE/ACETAMINOPHEN 5/325MG TABLET PO PRN (15:00)
[2019-10-25 15:19] LABS: BG CARBOXYHEMOGLOBIN 0.2 % (0.5-1.5); BG DEOXYHEMOGLOBIN 3.4 % (0.0-5.0); BG HCO3 ACT 17.5 mmol/L (22.0-26.0); BG METHEMOGLOBIN 0.4 % (0.0-1.5); BG OXYGEN SATURATION 96.6 % (92.0-98.5); BG PCO2 25.2 mmHg (35.0-45.0); BG PO2 93.8 mmHg (75.0-100.0); BG SAMPLE SITE RIGHT RADIAL; BG TOTAL HEMOGLOBIN 11.1 g/dL (12.0-18.0); BG VENT MODE ROOM AIR
[2019-10-25 16:00] VITALS: BP 120/61
[2019-10-25 17:50] LABS: BASOPHILS % 0.3 % (0.0-2.0); EOSINOPHILS % 2.8 % (0.0-5.0); HEMATOCRIT. 30.6 % (42.0-52.0); HEMOGLOBIN. 10.3 g/dL (14.0-18.0); MEAN CORPUSCULAR HEMOGLOBIN 26.4 pg (28.0-32.0); MEAN PLATELET VOLUME 9.3 fl (7.4-10.4); MONOCYTES % 13.1 % (2.0-8.0); NEUTROPHILS % 59.8 % (40.0-76.0); PLATELET 75 x1000/uL (130-400); RED BLOOD CELL COUNT 3.92 mill/uL (4.7-6.1); RED CELL DISTRIBUTION WIDTH 20.6 % (11.6-14.6)
[2019-10-25 17:56] LABS: INR 1.2; PROTHROMBIN TIME 12.8 sec (9.6-11.0)
[2019-10-25 17:59] LABS: CHLORIDE 107 mEq/L (98-107)
== END 2019-10-25 19:05 | DRG 177 ==
LOC: ER 11:24 → EDBEDREQ 17:26 → EDBEDREQTM 17:26 → ENRESERV 20:24 → 5WST 22:16 → 7WST 10-24 22:27
PROVIDERS: ADMIT Internal Medicine; ATTEND Internal Medicine
DX: U07.1 COVID-19 (principal); G93.41 Metabolic encephalopathy; E44.1 Mild protein-calorie malnutrition; E72.20 Disorder of urea cycle metabolism, unspecified; K72.90 Hepatic failure, unspecified without coma; K74.60 Unspecified cirrhosis of liver; E11.65 Type 2 diabetes mellitus with hyperglycemia; I10 Essential (primary) hypertension; R16.1 Splenomegaly, not elsewhere classified; E66.9 Obesity, unspecified; D50.9 Iron deficiency anemia, unspecified; F10.10 Alcohol abuse, uncomplicated; Y90.9 Presence of alcohol in blood, level not specified; D69.6 Thrombocytopenia, unspecified; Z79.2 Long term (current) use of antibiotics; Z79.84 Long term (current) use of oral hypoglycemic drugs
CPT/HCPCS: 36415; 36600; 71045; 80048; 80053; 80076; 80305; 80320; 81003; 82140; 82375; 82805; 82962; 83036; 83735; 84100; 85025; 86705; 86709; 86803; 86850; 86900; 87340; 93005; 97116; 97162; 97166; 99291; J1815; J2543; J7060; G0480; U0003-CS

== ENCOUNTER 2019-10-27 00:07 | Inpatient (IN) | payer MEDICARE, OTHER ==
[~2019-10-27] VITALS: Ht 172.7 cm; Wt 89.9 kg
[2019-10-27 00:55] LABS: HEMATOCRIT. 33.1 % (42.0-52.0); HEMOGLOBIN. 11.3 g/dL (14.0-18.0); MEAN CORPUSCULAR HEMOGLOBIN 26.6 pg (28.0-32.0); MEAN PLATELET VOLUME 8.6 fl (7.4-10.4); PLATELET 88 x1000/uL (130-400); RED BLOOD CELL COUNT 4.24 mill/uL (4.7-6.1)
[2019-10-27 00:59] LABS: CHLORIDE 110 mEq/L (98-107)
[2019-10-27] MEDS ORDERED: LACTULOSE 20G/30ML UDC PO ONE (01:15)
[2019-10-27 02:42] LABS: PLATELET ESTIMATE DECREASED
[2019-10-27 03:30] VITALS: BP 103/64
[2019-10-27 04:00] VITALS: BP 103/64
[2019-10-27] MEDS ORDERED: DEXTROSE 50% WATER 50ML SYRINGE IV PRN (05:30)
[2019-10-27] MEDS: BLOOD SUGAR DIAGNOSTIC STRIP TEST SCH ×4 (06:42→21:45)
[2019-10-27] MEDS: INSULIN LISPRO 100 UNITS/ML SUBCUT SCH ×4 (07:31→21:00)
[2019-10-27 08:00] VITALS: BP 106/59
[2019-10-27] MEDS: OMEPRAZOLE 20MG CAPSULE EXTENDED RELEASE PO SCH (08:51)
[2019-10-27] MEDS: LACTULOSE 20G/30ML UDC PO SCH ×3 (08:51→20:59)
[2019-10-27] MEDS: FOLIC ACID 1MG TABLET PO SCH (08:52)
[2019-10-27] MEDS: SUCRALFATE 1G TABLET PO SCH ×4 (08:52→20:59)
[2019-10-27] MEDS: FUROSEMIDE 40MG TABLET PO SCH (08:52)
[2019-10-27] MEDS ORDERED: ERGOCALCIFEROL 50000UNITS CAPSULE PO SCH (09:00)
[2019-10-27 12:00] VITALS: BP 113/66
[2019-10-27 12:16] LABS: CHLORIDE 110 mEq/L (98-107)
[2019-10-27 12:24] LABS: HEMATOCRIT. 37.1 % (42.0-52.0); HEMOGLOBIN. 12.4 g/dL (14.0-18.0); MEAN CORPUSCULAR HEMOGLOBIN 26.8 pg (28.0-32.0); MEAN CORPUSCULAR VOLUME 80.3 fL (80.0-94.0); MEAN PLATELET VOLUME 8.6 fl (7.4-10.4); PLATELET 78 x1000/uL (130-400); RED BLOOD CELL COUNT 4.63 mill/uL (4.7-6.1); RED CELL DISTRIBUTION WIDTH 21.1 % (11.6-14.6)
[2019-10-27 13:26] LABS: PLATELET ESTIMATE DECREASED
[2019-10-27] MEDS ORDERED: HYDROCODONE/ACETAMINOPHEN 5/325MG TABLET PO PRN (14:00)
[2019-10-27] MEDS ORDERED: LORAZEPAM 2MG/ML CPJ IV PRN (14:00)
[2019-10-27 16:00] VITALS: BP 131/55
[2019-10-27] MEDS: RIFAXIMIN 550 MG TABLET PO SCH (18:30)
[2019-10-27 20:00] VITALS: BP 106/40
[2019-10-28] VITALS: BP 105/60
[2019-10-28] MEDS: LACTULOSE 20G/30ML UDC PO SCH ×4 (01:51→21:31)
[2019-10-28 02:06] LABS: INR 1.2; PROTHROMBIN TIME 13.1 sec (9.6-11.0)
[2019-10-28 04:00] VITALS: BP 116/62
[2019-10-28] MEDS: BLOOD SUGAR DIAGNOSTIC STRIP TEST SCH ×4 (06:40→21:32)
[2019-10-28] MEDS: SUCRALFATE 1G TABLET PO SCH ×4 (06:41→21:31)
[2019-10-28] MEDS: OMEPRAZOLE 20MG CAPSULE EXTENDED RELEASE PO SCH (06:41)
[2019-10-28] MEDS: INSULIN LISPRO 100 UNITS/ML SUBCUT SCH ×4 (07:17→21:00)
[2019-10-28 07:34] VITALS: BP 147/87
[2019-10-28] MEDS: FUROSEMIDE 40MG TABLET PO SCH (08:33)
[2019-10-28] MEDS: FOLIC ACID 1MG TABLET PO SCH (08:33)
[2019-10-28] MEDS: RIFAXIMIN 550 MG TABLET PO SCH ×2 (08:33→21:31)
[2019-10-28 12:00] VITALS: BP 127/55
[2019-10-28 16:22] VITALS: BP 112/67
[2019-10-28 20:00] VITALS: BP 145/80
[2019-10-29] VITALS: BP 138/69
[2019-10-29] MEDS: LACTULOSE 20G/30ML UDC PO SCH ×4 (02:14→20:52)
[2019-10-29 04:00] VITALS: BP 153/87
[2019-10-29] MEDS: BLOOD SUGAR DIAGNOSTIC STRIP TEST SCH ×3 (06:23→20:52)
[2019-10-29] MEDS: INSULIN LISPRO 100 UNITS/ML SUBCUT SCH ×3 (07:56→21:13)
[2019-10-29 08:00] VITALS: BP 109/56
[2019-10-29] MEDS: FOLIC ACID 1MG TABLET PO SCH (09:21)
[2019-10-29] MEDS: OMEPRAZOLE 20MG CAPSULE EXTENDED RELEASE PO SCH (09:21)
[2019-10-29] MEDS: RIFAXIMIN 550 MG TABLET PO SCH ×2 (09:21→20:52)
[2019-10-29] MEDS: SUCRALFATE 1G TABLET PO SCH ×4 (09:22→20:52)
[2019-10-29] MEDS: FUROSEMIDE 40MG TABLET PO SCH (09:22)
[2019-10-29 12:00] VITALS: BP 110/69
[2019-10-29 16:00] VITALS: BP 130/81
[2019-10-29 20:00] VITALS: BP 137/80
[2019-10-30] VITALS: BP 131/80
[2019-10-30] MEDS: LACTULOSE 20G/30ML UDC PO SCH ×4 (01:29→22:05)
[2019-10-30 04:00] VITALS: BP 136/79
[2019-10-30] MEDS: SUCRALFATE 1G TABLET PO SCH ×4 (06:58→22:05)
[2019-10-30] MEDS: OMEPRAZOLE 20MG CAPSULE EXTENDED RELEASE PO SCH (06:58)
[2019-10-30] MEDS: BLOOD SUGAR DIAGNOSTIC STRIP TEST SCH ×4 (07:40→21:35)
[2019-10-30 08:00] VITALS: BP 121/60
[2019-10-30] MEDS: INSULIN LISPRO 100 UNITS/ML SUBCUT SCH ×4 (08:10→22:08)
[2019-10-30] MEDS: FUROSEMIDE 40MG TABLET PO SCH (08:49)
[2019-10-30] MEDS: FOLIC ACID 1MG TABLET PO SCH (08:49)
[2019-10-30] MEDS: RIFAXIMIN 550 MG TABLET PO SCH ×2 (08:50→22:05)
[2019-10-30 12:00] VITALS: BP 134/76
[2019-10-30 16:00] VITALS: BP 131/78
[2019-10-30 20:00] VITALS: BP 143/71
[2019-10-31] VITALS: BP 144/83
[2019-10-31] MEDS: LACTULOSE 20G/30ML UDC PO SCH ×4 (02:59→22:06)
[2019-10-31 04:00] VITALS: BP 116/73
[2019-10-31] MEDS: SUCRALFATE 1G TABLET PO SCH ×4 (06:47→22:07)
[2019-10-31] MEDS: OMEPRAZOLE 20MG CAPSULE EXTENDED RELEASE PO SCH (06:47)
[2019-10-31] MEDS: BLOOD SUGAR DIAGNOSTIC STRIP TEST SCH ×4 (06:56→22:08)
[2019-10-31] MEDS: INSULIN LISPRO 100 UNITS/ML SUBCUT SCH ×4 (06:56→22:07)
[2019-10-31 08:00] VITALS: BP 132/72
[2019-10-31] MEDS: FOLIC ACID 1MG TABLET PO SCH (09:11)
[2019-10-31] MEDS: RIFAXIMIN 550 MG TABLET PO SCH ×2 (09:11→22:09)
[2019-10-31] MEDS: FUROSEMIDE 40MG TABLET PO SCH (09:12)
[2019-10-31 12:00] VITALS: BP 138/81
[2019-10-31 16:00] VITALS: BP 147/86
[2019-10-31 20:00] VITALS: BP 128/75
[2019-11-01] VITALS: BP 149/75
[2019-11-01] MEDS: LACTULOSE 20G/30ML UDC PO SCH ×4 (02:00→21:08)
[2019-11-01] MEDS: INSULIN LISPRO 100 UNITS/ML SUBCUT SCH ×4 (07:52→21:19)
[2019-11-01] MEDS: BLOOD SUGAR DIAGNOSTIC STRIP TEST SCH ×4 (07:52→21:19)
[2019-11-01 08:00] VITALS: BP 108/63
[2019-11-01] MEDS: FOLIC ACID 1MG TABLET PO SCH (09:13)
[2019-11-01] MEDS: SUCRALFATE 1G TABLET PO SCH ×4 (09:13→21:08)
[2019-11-01] MEDS: FUROSEMIDE 40MG TABLET PO SCH (09:13)
[2019-11-01] MEDS: OMEPRAZOLE 20MG CAPSULE EXTENDED RELEASE PO SCH (09:14)
[2019-11-01] MEDS: RIFAXIMIN 550 MG TABLET PO SCH ×2 (09:14→21:08)
[2019-11-01 10:31] LABS: HEMATOCRIT 29.4 % (42.0-52.0); HEMOGLOBIN 9.9 g/dL (14.0-18.0); MEAN CORPUSCULAR HEMOGLOBIN 26.5 pg (28.0-32.0); MEAN CORPUSCULAR VOLUME 78.5 fL (80.0-94.0); PLATELET 54 x1000/uL (130-400); RED BLOOD CELL COUNT 3.74 mill/uL (4.7-6.1); RED CELL DISTRIBUTION WIDTH 21.8 % (11.6-14.6)
[2019-11-01 10:42] LABS: CHLORIDE 105 mEq/L (98-107)
[2019-11-01 12:00] VITALS: BP 110/74
[2019-11-01] MEDS ORDERED: POTASSIUM CHLORIDE 20MEQ TABLET SR PO SCH (14:30)
[2019-11-01 16:00] VITALS: BP 117/63
[2019-11-01 19:52] VITALS: BP 117/63
[2019-11-01 20:00] VITALS: BP 121/69
== END 2019-11-01 23:00 | DRG 177 ==
LOC: ER 00:07 → 7WST 01:15 → ENRESERV 02:22
PROVIDERS: ADMIT Internal Medicine; ATTEND Internal Medicine
DX: U07.1 COVID-19 (principal); K72.00 Acute and subacute hepatic failure without coma; D61.818 Other pancytopenia; I85.00 Esophageal varices without bleeding; E11.9 Type 2 diabetes mellitus without complications; I10 Essential (primary) hypertension; K74.60 Unspecified cirrhosis of liver; Z79.899 Other long term (current) drug therapy
CPT/HCPCS: 36415; 80053; 82140; 82962; 83036; 85025; 85027; 99285; J1815; U0003-CS